=== PATIENT | male | born 1970 | race Caucasian/White ===

== ENCOUNTER → 2018-10-10 | Outpatient (CLI) | payer OTHER ==
--- NOTE | 2018-10-10 16:27 | KCIC ---
EXAM: MRI lateral HIP DATE: 10/10/2018 2:45 PM CLINICAL INDICATION: Bilateral hip pain. Impingement. COMPARISON: None. TECHNIQUE: Multiple multiplanar multisequence MR imaging of both hips was performed without IV contrast. In addition full-field survey images of the pelvis using coronal STIR images were obtained. No IV contrast. FINDINGS: Right hip: Fluid: Physiologic fluid at the hip joint capsule. Negative fluid distention of the greater trochanteric bursa. Hip: Joint line: Mild chondral thinning superiorly without discrete full-thickness cartilage defect. Focal full-thickness fissuring at the the superior hip joint with subtle subchondral edema/cystic change. Labral survey: Limited survey of the acetabular labrum within normal limits. Bone marrow:Normal bone marrow signal without finding of fracture, AVN or focal bone marrow replacement. There is prominence of the femoral head/neck junction which may predispose to cam-type femoral acetabular impingement. Given submitted planes, alpha angle cannot be accurately calculated although is presumed to be increased. The tendinous attachments of the gluteus medius, minimus, hamstrings and iliopsoas are intact, grossly normal in signal and morphology. Jessica-articular soft tissues: Negative periarticular mass lesion or focal muscular atrophy. Left hip: Fluid: Physiologic fluid at the hip joint capsule. Negative fluid distention of the greater trochanteric bursa. Hip: Joint line: Severe chondral thinning with regions of full-thickness cartilage defect superiorly with subchondral edema. Susceptibility artifact is seen within the superior acetabulum, likely from prior surgery. No discrete labral tear is identified. Small osteophytes are seen at the left femoral head/neck junction. Labral survey: Limited survey of the acetabular labrum within normal limits. Bone marrow:Normal bone marrow signal without finding of fracture, AVN or focal bone marrow replacement. The tendinous attachments of the gluteus medius, minimus, hamstrings and iliopsoas are intact, grossly normal in signal and morphology. Jessica-articular soft tissues: Negative periarticular mass lesion or focal muscular atrophy. Limited survey of pelvis: Limited survey of the visceral contents of the pelvis within normal limits. IMPRESSION: 1. Bilateral hip joint osteoarthritis with superior chondral thinning and regions of subchondral edema/cystic change. 2. Mild osseous prominence of the right femoral head/neck junction may predispose to cam-type femoral acetabular impingement. 3. Tendinous attachments of the iliopsoas, gluteus medius, minimus, hamstrings and iliopsoas are intact bilaterally grossly normal in signal and morphology. Electronically signed by: Pop Herrera MD (10/10/2018 4:22 PM) [email or web address]
--- NOTE | 2018-10-10 17:01 | KCIC ---
EXAM: MRI right shoulder DATE: 10/10/2018 4:15 PM COMPARISON: None INDICATION: Multiplanar multisequence MR imaging of the right shoulder was performed without IV contrast. TECHNIQUE: Multiplanar, multisequence MRI of the right shoulder was performed without contrast. FINDINGS: No significant glenohumeral joint effusion. Trace subacromial-subdeltoid bursal edema likely bursitis. Moderate AC joint degenerative change. No os acromiale. Type I acromion. There is a short segment articular sided tear of the anteriormost fibers of the supraspinatus involving approximately 50% tendon thickness measuring 4 mm in AP dimension. Mild increased signal and thickening within the distal supraspinatus and infraspinatus tendon, mild tendinosis. Rotator cuff muscle signal and bulk is normal without fatty atrophy. Diffuse labral degeneration/maceration is seen with cystic change within the glenoid with chondral effacement predominantly posteriorly to the glenoid. There is flattening of the normal glenoid concavity. Prominent inferior glenohumeral osteophytes are seen. No evidence for fracture or AVN. IMPRESSION: 1. Advanced right glenohumeral joint osteophytes arthritis with regions of chondral effacement subchondral cystic change. 2. Short segment partial-thickness articular sided tear of the anteriormost fibers of the supraspinatus tendon. 3. Moderate AC joint degenerative change. Electronically signed by: Pop Herrera MD (10/10/2018 4:57 PM) [email or web address]
== END | disposition home or self-care (01) ==
LOC: KCIC MRI 14:38
PROVIDERS: ATTEND Family Medicine
DX: M16.0 Bilateral primary osteoarthritis of hip (principal); M19.011 Primary osteoarthritis, right shoulder; M25.752 Osteophyte, left hip; M25.751 Osteophyte, right hip; M75.101 Unspecified rotator cuff tear or rupture of right shoulder, not specified as traumatic
CPT/HCPCS: 73221; 73721

== ENCOUNTER → 2019-03-22 | Outpatient (CLI) | payer OTHER ==
--- NOTE | 2019-03-22 15:24 | KCIC ---
MRI Cervical Spine Without Contrast History: Neck and back pain, loss of range of motion Technique: Multiplanar, multi sequential noncontrast MR imaging was performed of the cervical spine. Comparison: None Findings: Cervical cord caliber is within normal limits without defined or expansile signal abnormality. There is degree of the cervical spine. Cervical vertebral body stature is maintained. There is no significant marrow edema. There is negligible anterior spondylolisthesis at C4-5 and C5-6. There is mild degenerative disc disease C5-6, mild disc desiccation C6-7. C2-C3: Spinal canal and neural foramina are adequate. C3-C4: Neural foramina and spinal canal are adequate. C4-C5: Spinal canal and right neural foramen are adequate, minimal narrowing of the left neural foramen due to facet degenerative change. C5-C6: Spinal canal and neural foramina are adequate. C6-C7: There is negligible disc osteophyte complex, very mild indentation upon the ventral thecal sac greater in the left lateral recess. Central canal is adequate about 11 mm, very mild narrowing of the far left lateral recess. Neural foramina are adequate. C7-T1: Spinal canal is adequate. There is very mild narrowing of the left neural foramen by uncovertebral and facet degenerative change, right neural foramen adequate. Impression: 1. There is very mild narrowing of the left C4-5 and C7-T1 neural foramina. There is no significant cervical spinal stenosis, mild indentation upon the ventral thecal sac in the left lateral recess by disc osteophyte complex at C6-7. Electronically signed by: Vick Jeffers MD (03/22/2019 3:21 PM) [email or web address]
--- NOTE | 2019-03-22 16:09 | KCIC ---
MRI Thoracic Spine without contrast History: Neck and back pain, loss of range of motion Technique: Multiplanar, multi sequential noncontrast MR imaging was performed of the thoracic spine. Comparison: None Findings: Thoracic vertebral body stature and AP alignment are overall maintained. Thoracic cord caliber is within normal limits without defined or expansile signal change. There is no significant marrow edema. There is mild degenerative disc disease greatest T8-9 and T9-10. There is no significant thoracic spinal stenosis. There is mild buckling of the ligamentum flavum greatest T10-11 through T12-L1. There are negligible posterior protrusions T7-8 and T8-9. Facet degenerative change contributes to mild posterior neural foramina compromise bilaterally at T8-T9, T9-T10, T10-11. There is also mild to moderate posterior narrowing on the right at T4-T5, minimal narrowing on the right at T5-T6. There is T2 hyperintense lesion of the visualized left kidney about 2.9 cm, statistically more likely a cyst. Impression: 1. There is no significant thoracic spinal stenosis. Facet degenerative change contributes to some variable mild to moderate neural foramina compromise as stated. 2. T2 hyperintense lesion of the visualized left kidney is statistically more likely a cyst. Electronically signed by: Vick Jeffers MD (03/22/2019 4:07 PM) [email or web address]
--- NOTE | 2019-03-22 16:21 | KCIC ---
MRI Lumbar Spine without contrast History: Neck and back pain, loss of range of motion Technique: Multiplanar, multi sequential noncontrast MR imaging was performed of the lumbar spine. Comparison: None Findings: Lumbar vertebral body stature is overall maintained. There is grade 1 anterior spondylolisthesis L5-S1 due to bilateral L5 spondylolysis. There is very mild posterior subluxation L4 relative to L5. There is advanced degenerative disc disease L5-S1, associated degenerative endplate change at this level. There is posterior annular tear L4-5. Conus terminates at L1. There is a small hemangioma of the L2 vertebral body. L1-L2: This level was not included on the axial images, spinal canal and neural foramina overall adequate. L2-L3: This level was not included on the axial images. Spinal canal and neural foramina are overall adequate. L3-L4: There is minimal disc osteophyte complex. Spinal canal and neural foramina are not significantly narrowed. There is minimal buckling of the ligamentum flavum and facet degenerative change. L4-L5: There is very minimal disc osteophyte complex. There is mild buckling of the ligamentum flavum. There is some fluid in the facet articulations bilaterally. Spinal canal is overall adequate. There is moderate to severe left and [id number] right neural foramina compromise. There is contact of exiting left L4 nerve root by disc osteophyte complex and facet. L5-S1: Spinal canal is adequate. There is partial uncovering of the posterior aspect of the disc due to spondylolisthesis and superimposed disc osteophyte complex. There is fairly severe narrowing the right neural foramen greater distally with contact exiting right L5 nerve root, also moderate to severe narrowing on the left with contact exiting left L5 nerve root. Impression: 1. There is grade 1 anterior spondylolisthesis L5-S1 due to bilateral L5 spondylolysis. There is fairly severe right greater than left L5-S1 neural foramina compromise with contact of the exiting L5 nerve roots bilaterally, also left greater than right L4-5 neural foramina compromise. There is advanced degenerative disc disease at L5-S1. There is very minimal posterior subluxation L4 relative to L5, facet degenerative change at this level. There is no significant lumbar spinal stenosis. Electronically signed by: Vick Jeffers MD (03/22/2019 4:18 PM) [email or web address]
== END | disposition home or self-care (01) ==
LOC: KCIC MRI 13:32
PROVIDERS: ATTEND Family Medicine
DX: M51.37 Other intervertebral disc degeneration, lumbosacral region (principal); M51.86 Other intervertebral disc disorders, lumbar region; M50.322 Other cervical disc degeneration at C5-C6 level; M51.34 Other intervertebral disc degeneration, thoracic region; M48.07 Spinal stenosis, lumbosacral region; M48.03 Spinal stenosis, cervicothoracic region; M43.12 Spondylolisthesis, cervical region; M25.78 Osteophyte, vertebrae; M53.2X6 Spinal instabilities, lumbar region; M51.36 Other intervertebral disc degeneration, lumbar region; D18.09 Hemangioma of other sites; N28.89 Other specified disorders of kidney and ureter
CPT/HCPCS: 72141; 72146; 72148

== ENCOUNTER → 2019-08-07 | Outpatient (CLI) | payer OTHER ==
--- NOTE | 2019-08-07 16:45 | KCIC ---
MR of the right elbow HISTORY: Right elbow pain, chronic. Lateral catching with clicking. TECHNIQUE: Routine multiplanar sequences are obtained. FINDINGS: Biceps and brachialis tendons are intact. Triceps tendon intact. Common flexor tendon and ulnar collateral ligament are intact. Common extensor tendon intact. Lateral collateral ligament is complex is intact. No acute fracture. No aggressive bone destruction. Area of signal void within the anterior proximal ulnar shaft seen at the distal edge of the [id number] on the sagittal sequences only, likely an area of sclerosis or bone island. No significant joint effusion. Ulnar nerve appears unremarkable. IMPRESSION: 1. No evidence of acute abnormality or internal derangement. 2. Small area of signal void at the subcortical aspect of the distal anterior radius on the sagittal images, most likely an area of sclerosis or bone island. No radiographs are available for correlation. Electronically signed by: Dewey Gaspar MD (08/07/2019 4:42 PM) [facility]
== END | disposition home or self-care (01) ==
LOC: KCIC MRI 14:45
PROVIDERS: ATTEND Orthopaedic Surgery
DX: M25.521 Pain in right elbow (principal)
CPT/HCPCS: 73221